=== PATIENT | male | born 1975 | race Caucasian/White ===

== ENCOUNTER 2018-03-08 17:17 | Emergency (ER) | payer MEDICAID ==
[2018-03-08 17:31] VITALS: BP 113/76; PULSE 89; RESP 18; TEMP 98.4; O2SAT 100
--- NOTE | 2018-03-08 18:11 | ED PDOC ---
HPI: Back Time Seen by Provider: 03/08/18 17:35 Chief Complaint (Nursing): Back Pain Chief Complaint (Provider): Back Pain History Per: Patient History/Exam Limitations: no limitations Onset/Duration Of Symptoms: Days (x3) Additional Complaint(s): 42 y/o male presents to ED complaining of x3 day history of lower back pain. Patient describes the pain as a soreness that worsens with positional movement. Patient denies direct injury, trauma or fever. Of note, pt. requesting hiv testing. Past Medical History Reviewed: Historical Data, Nursing Documentation, Vital Signs Vital Signs: Last Vital Signs Temp 98.4 F 03/08/18 17:29 Pulse 89 03/08/18 17:29 Resp 18 03/08/18 17:29 BP 113/76 03/08/18 17:29 Pulse Ox 100 03/08/18 17:29 - Medical History PMH: No Chronic Diseases - Surgical History Surgical History: No Surg Hx - Family History Family History: States: Unknown Family Hx - Home Medications Home Medications: Ambulatory Orders Medication Instructions Recorded Ibuprofen [Motrin Tab] 600 mg PO TID PRN #15 tab 03/08/18 - Allergies Allergies/Adverse Reactions: Allergies Allergy/AdvReac Type Severity Reaction Status Date / Time No Known Allergies Allergy Verified 03/08/18 17:29 Review of Systems ROS Statement: Except As Marked, All Systems Reviewed And Found Negative Constitutional: Negative for: Fever Musculoskeletal: Positive for: Back Pain Physical Exam - Reviewed Nursing Documentation Reviewed: Yes Vital Signs Reviewed: Yes - Physical Exam Appears: Positive for: Non-toxic, No Acute Distress Head Exam: Positive for: ATRAUMATIC, NORMOCEPHALIC Skin: Positive for: Normal Color, Warm, DRY Eye Exam: Positive for: EOMI, Normal appearance, PERRL Gastrointestinal/Abdominal: Positive for: Normal Exam, Soft. Negative for: Tenderness Back: Positive for: Vertebral Tenderness (mild paralumbar tenderness). Negative for: L CVA Tenderness, R CVA Tenderness Neurologic/Psych: Positive for: Alert, Oriented, Other (strength in bilateral lower extremities 5/5; sensation intact). Negative for: Motor/Sensory Deficits - ECG O2 Sat by Pulse Oximetry: 100 (RA) Pulse Ox Interpretation: Normal Medical Decision Making Medical Decision Making: Time: 18:00 Initial Impression: back pain Initial Plan: Administered Motrin PO Patient is requesting HIV test; advised will give referral for outpatient testing Patient is well appearing and ambulatory in ED with no neurological deficits. Referring patient to ortho. Scribe Attestation: Documented by Toni Batres, acting as a scribe for Xochilt Jama PA-C Provider Scribe Attestation: All medical record entries made by the Scribe were at my direction and personally dictated by me. I have reviewed the chart and agree that the record accurately reflects my personal performance of the history, physical exam, medical decision making, and the department course for this patient. I have also personally directed, reviewed, and agree with the discharge instructions and disposition. Disposition - Clinical Impression Clinical Impression: Back pain Counseled Patient/Family Regarding: Diagnosis, Need For Followup, Rx Given - Disposition Referrals: Edilma Jefferson MD [Staff Provider] - [facility] [Outside] Disposition: Routine/Home Disposition Time: 18:30 Condition: STABLE Prescriptions: Ibuprofen [Motrin Tab] 600 mg PO TID PRN #15 tab PRN Reason: Pain, Moderate (4-7) Instructions: Upper Back Pain (DC) Forms: [employer] (K[place]akh)
== END 2018-03-08 18:52 | disposition home or self-care (01) ==
LOC: H.ER 17:17
DX: M54.9 Dorsalgia, unspecified (principal)